=== PATIENT | male | born 1960 | race Caucasian/White ===

== ENCOUNTER 2022-04-07 15:03 | Emergency (ER) | payer BC, OTHER ==
[2022-04-07] MEDS ORDERED: NEOSYNEPHRINE 0.5% NASAL SPRAY/DROPS ONE (15:15)
[2022-04-07 15:47] LABS: Absolute Neutrophil Ct (ANC) 5.91 x10^3/uL (1.4-6.9); Basophil (Absolute #) 0.06 x10^3/uL (0-0.4); Eosinophil % 3.5 % (0.00-5.0); Hematocrit 38.3 % (42-50); Hemoglobin 11.8 g/dL (12.5-18.0); Lymphocyte (Absolute #) 1.54 x10^3/uL (1.0-4.6); Lymphocytes % 17.9 % (24.0-44.0); Mean Cell Volume 98.2 fL (78-100); Mean Corpuscular Hemoglobin 30.3 pg (26-32); Mean Corpuscular Hgb Concent. 30.8 g/dL (32-36); Mean Platelet Volume 9.5 fL (7.5-11.0); Monocyte (Absolute #) 0.76 x10^3/uL (0.0-1.3); Monocytes % 8.8 % (0.0-12.0); Neutrophil % 68.8 % (36.0-66.0); Platelet Count 202 x10^3/uL (150-450); Red Cell Distribution Width 13.7 % (11.5-14.0); White Blood Count 8.6 x10^3/uL (4.0-10.5)
[2022-04-07] MEDS ORDERED: NEOSYNEPHRINE 0.5% NASAL SPRAY/DROPS NS ONE (15:47)
--- NOTE | 2022-04-07 15:54 | ERPHSYRPT ---
- History of Present Illness Source: patient Exam Limitations: other (Poor historian) Patient Subjective Stated Complaint: Nosebleed Triage Nursing Assessment: Patient brought back to [facility] w/c and transferred self to bed. Patient A+O x3. Patient's skin pink, warm and dry. Patient complains of nose bleed out of left nare that started around 0900. Patient denies recent trau ma to nose. Patient does take Xarelto. Left nare noted not to have any active bleeding but dried blood around nare. Physician History: 62 yo wm w L epistaxis since 9:00AM today. Pt is on Xaralto. He denies h/o epistaxis and has no other complaints at this time. Timing/Duration: abrupt onset Severity: mild ENT Location: nose (L epistaxis) Prearrival Treatment: no prearrival treatment Modifying Factors: Improves With: activity Associated Symptoms: epistaxis Allergies/Adverse Reactions: venom-honey bee Allergy (Verified 04/07/22 15:16) Hx Influenza Vaccination/Date Given: No Hx Pneumococcal Vaccination/Date Given: No Immunizations Up to Date: Yes Travel Risk - International Travel Have you traveled outside of the country in past 3 weeks: No - Coronavirus Screening Are you exhibiting any of the following symptoms?: No Close contact with a COVID-19 positive Pt in past 14-21 Days: No - Vaccine Status Have you recieved a Covid-19 vaccination: 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[employer] - Vaccination Dates Date of 2cond Vaccination (if applicable): na - Review of Systems Constitutional: No Symptoms Eyes: No Symptoms Ears, Nose, & Throat: No Symptoms, Epistaxis Respiratory: No Symptoms Cardiac: No Symptoms Abdominal/Gastrointestinal: No Symptoms Genitourinary Symptoms: No Symptoms Musculoskeletal: No Symptoms Skin: No Symptoms Neurological: No Symptoms Psychological: No Symptoms Endocrine: No Symptoms Hematologic/Lymphatic: No Symptoms Immunological/Allergic: No Symptoms - Past Medical History Pertinent Past Medical History: Yes Neurological History: No Pertinent History ENT History: No Pertinent History Cardiac History: Hypertension Respiratory History: Asthma, Bronchitis, Sleep Apnea Endocrine Medical History: No Pertinent History Musculoskeletal History: No Pertinent History GI Medical History: GERD, GI Bleed, Hemorrhoids, Hernia, Pancreatitis, Ulcer History: No Pertinent History Psycho-Social History: No Pertinent History Male Reproductive Disorders: No Pertinent History - Past Surgical History Past Surgical History: Yes Neuro Surgical History: No Pertinent History Cardiac: No Pertinent History Respiratory: No Pertinent History Gastrointestinal: Cholecystectomy, Colon Resection, Hernia Repair Genitourinary: No Pertinent History Musculoskeletal: Joint Replacement, Orthopedic Surgery Male Surgical History: No Pertinent History Other Surgical History: Bilateral Knee replacement; left shoulder repair - Social History Smoking Status: Current every day smoker How long have you smoked: years Exposure to second hand smoke: No Drug Use: none Patient Lives Alone: Yes Significant Family History: no pertinent family hx - Nursing Vital Signs Nursing Vital Signs: Initial Vital Signs Pulse Rate 86 04/07/22 15:18 Respiratory Rate 18 04/07/22 15:18 Blood Pressure 95/77 04/07/22 15:18 O2 Sat by Pulse Oximetry 95 04/07/22 15:18 Pain Scale Pain Intensity 8 Borderline hypotension - Physical Exam General Appearance: no apparent distress Eye Exam: bilateral eye: normal inspection, PERRL, EOMI Ear Exam: bilateral ear: auricle normal, canal normal, TM normal Nasal Exam: dried blood (L anterior nares) Throat Exam: normal, pharynx normal Neck Exam: normal inspection, non-tender, supple, full range of motion, trachea midline Cardiovascular/Respiratory Exam: normal breath sounds, regular rate/rhythm, heart sounds normal Abdominal Exam: non-tender, soft (Morbidly obese) Neurologic Exam: alert, oriented x 3, cooperative, 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, normal mood/affect, nml cerebellar function, nml station & gait, sensation nml Skin Exam: normal color, warm, dry, No rash SpO2 Interpretation: normal SpO2: 95 O2 Delivery: Room Air - Course Nursing assessment & vital signs reviewed: Yes - CT Exams Head CT Interpretation: Tele-radiologist Report (CT head neg per telerad) Ordered Tests: Active Orders 24 hr Category Date Time Status HEAD WITHOUT CONTRAST [CT] Stat Exams 04/07/22 17:03 Taken CBC W DIFF Stat Lab 04/07/22 15:30 Completed PROTIME WITH INR Stat Lab 04/07/22 15:51 Completed PTT Stat Lab 04/07/22 15:51 Completed Medication Summary Discontinued Medications Generic Name Dose Route Start Last Admin Trade Name Freq PRN Reason Stop Dose Admin Hydrocodone Bitart/Acetaminophen 1 tablet 04/07/22 18:14 04/07/22 18:18 Hydrocodone/Acetamin 10-325 Mg Tablet PO 04/07/22 18:15 1 tablet STAT ONE Administration Phenylephrine HCl Confirm 04/07/22 15:15 Neosynephrine 0.5% Nasal Mercer/Drops Administered 04/07/22 15:16 Dose 15 ml .ROUTE .STK-MED ONE Phenylephrine HCl 15 ml 04/07/22 15:47 04/07/22 15:48 Neosynephrine 0.5% Nasal Mercer/Drops NS 04/07/22 15:48 15 ml STAT ONE Administration Lab/Rad Data: Laboratory Result Diagrams 04/07/22 15:30 Laboratory Results 04/07/22 04/07/22 Range/Units 15:51 15:30 WBC 8.6 (4.0-10.5) x10^3/uL RBC 3.90 L (4.1-5.6) x10^6/uL Hgb 11.8 L (12.5-18.0) g/dL Hct 38.3 L (42-50) % MCV 98.2 (78-100) fL MCH 30.3 (26-32) pg MCHC 30.8 L (32-36) g/dL RDW 13.7 (11.5-14.0) % Plt Count 202 (150-450) x10^3/uL MPV 9.5 (7.5-11.0) fL Gran % 68.8 H (36.0-66.0) % Immature Gran % (Auto) 0.3 (0.00-0.4) % Nucleat RBC Rel Count 0.0 (0.00-0.1) % Eos # (Auto) 0.30 (0-0.5) x10^3/uL Immature Gran # (Auto) 0.03 (0.00-0.03) x10^3u/L Absolute Lymphs (auto) 1.54 (1.0-4.6) x10^3/uL Absolute Monos (auto) 0.76 (0.0-1.3) x10^3/uL Absolute Nucleated RBC 0.00 (0.00-0.01) x10^3u/L Lymphocytes % 17.9 L (24.0-44.0) % Monocytes % 8.8 (0.0-12.0) % Eosinophils % 3.5 (0.00-5.0) % Basophils % 0.7 (0.0-0.4) % Absolute Granulocytes 5.91 (1.4-6.9) x10^3/uL Basophils # 0.06 (0-0.4) x10^3/uL PT 15.3 H (9.4-12.5) SECONDS INR 1.50 (0.8-3.0) APTT 42.8 H (25.1-36.5) SECONDS - Progress Progress: improved Progress Note: 04/07/22 15:54 Pt started to bleed from L nostril, appears anterior Neosynephrine sprayed into L nares generously anterior Epistaxis balloon placed and inflated No comps 04/07/22 18:21 Pt developed extreme NDIAYE after balloon catheter placed which decreased slightly by letting some air out. Pain seemed out of proportion to situation and since pt on Xaralto, obtained CT of head which was negative. Norco10 po x1. Counseled pt/family regarding: diagnosis, need for follow-up - Departure Departure Disposition: Home Clinical Impression: Epistaxis Condition: Stable Critical Care Time: No Referrals: RODRICK GONZALEZ MD [Primary Care Provider] - Follow up/PCP as directed Instructions: Nosebleeds (DC) Additional Instructions: Hold Morning dose of Xaralto and resume on Sunday Return to ER on Sunday to have packing removed Return to ER sooner if bleeding restarts
[2022-04-07 16:13] LABS: INR 1.5 (0.8-3.0); PROTIME 15.3 SECONDS (9.4-12.5); PTT 42.8 SECONDS (25.1-36.5)
[2022-04-07] MEDS ORDERED: HYDROCODONE-ACETAMIN 10-325 MG PO ONE (18:14)
[2022-04-07 18:24] VITALS: BP 128/88; PULSE 80
[2022-04-07 18:25] VITALS: O2SAT 95
--- NOTE | 2022-04-07 23:13 | XRAY ---
Indication: Headache, dizziness, and epistaxis. Multiple contiguous axial images obtained through the head without contrast. Comparison: None Age-appropriate global atrophy. No acute intracranial hemorrhage, abnormal extra-axial fluid collection, or mass effect. Fourth ventricle is midline without hydrocephalus. Bony calvarium intact. Visualized paranasal sinuses and mastoid air cells are clear. Impression: Negative CT head without contrast exam. Comment: Preliminary interpretation made by [facility]. No critical discrepancy.
== END 2022-04-07 18:29 | disposition home or self-care (01) ==
LOC: ED 15:03
DX: R04.0 Epistaxis (principal); R51.9 Headache, unspecified; Z79.01 Long term (current) use of anticoagulants; Z79.899 Other long term (current) drug therapy; Z20.828 Contact with and (suspected) exposure to other viral communicable diseases; Z72.0 Tobacco use
CPT/HCPCS: 36415; 70450; 85025; 85610; 85730; 99283; A9270-GY

== ENCOUNTER 2022-04-10 07:02 | Emergency (ER) | payer OTHER ==
--- NOTE | 2022-04-10 07:23 | ERPHSYRPT ---
- History of Present Illness Source: patient Exam Limitations: no limitations Patient Subjective Stated Complaint: Nose bleed- removal of Rhino Rocket Triage Nursing Assessment: Patient ambulated back to ED and transferred self to bed. Patient A+O X3. Patient's skin pink, warm and dry. Patient here to have Rhino Rocket removed. Patient had nosebleed on Sunday04/07/2022 and a Rhino Rocket was placed in left nare. Patient denies pain or discomfort. Physician History: Pt here to have Rhino-Rocket removed from L nostril after being placed on 04/07 by myself for L epistaxis. Pt was supposed to resume Xaralto yesterday but did not. He is instructed to start it this morning. He reports no further bleeding. 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[employer]: [employer] - Vaccination Dates Date of 2cond Vaccination (if applicable): na - Review of Systems Constitutional: No Symptoms Eyes: No Symptoms Ears, Nose, & Throat: No Symptoms Respiratory: No Symptoms Cardiac: No Symptoms Abdominal/Gastrointestinal: No Symptoms Genitourinary Symptoms: No Symptoms Musculoskeletal: No Symptoms Skin: No Symptoms Neurological: No Symptoms Psychological: No Symptoms Endocrine: No Symptoms Hematologic/Lymphatic: No Symptoms Immunological/Allergic: No Symptoms - Past Medical History Pertinent Past Medical History: Yes Neurological History: No Pertinent History ENT History: No Pertinent History Cardiac History: Hypertension Respiratory History: Asthma, Bronchitis, Sleep Apnea Endocrine Medical History: No Pertinent History Musculoskeletal History: No Pertinent History GI Medical History: GERD, GI Bleed, Hemorrhoids, Hernia, Pancreatitis, Ulcer History: No Pertinent History Psycho-Social History: No Pertinent History Male Reproductive Disorders: No Pertinent History - Past Surgical History Past Surgical History: Yes Neuro Surgical History: No Pertinent History Cardiac: No Pertinent History Respiratory: No Pertinent History Gastrointestinal: Cholecystectomy, Colon Resection, Hernia Repair Genitourinary: No Pertinent History Musculoskeletal: Joint Replacement, Orthopedic Surgery Male Surgical History: No Pertinent History Other Surgical History: Bilateral Knee replacement; left shoulder repair - Social History Smoking Status: Current every day smoker How long have you smoked: years Exposure to second hand smoke: No Drug Use: none Patient Lives Alone: Yes Significant Family History: no pertinent family hx - Nursing Vital Signs Nursing Vital Signs: Initial Vital Signs Temperature 97.6 F 04/10/22 07:09 Pulse Rate 91 H 04/10/22 07:09 Respiratory Rate 18 04/10/22 07:09 Blood Pressure 142/101 04/10/22 07:09 Pain Scale Pain Intensity 0 Hypertensive - Physical Exam General Appearance: no apparent distress Eye Exam: PERRL/EOMI Ears, Nose, Throat Exam: TMs normal, pharynx normal, moist mucous membranes, other (Rhino-Rocket L nares/No active bleeding) Neck Exam: normal inspection, non-tender, supple, full range of motion, No meningismus, No mass, No Brudzinski, No Kernig's, No carotid bruit Respiratory Exam: normal breath sounds, lungs clear, airway intact Cardiovascular Exam: regular rate/rhythm, normal heart sounds, normal peripheral pulses, capillary refill <2 sec, No murmur Gastrointestinal/Abdomen Exam: soft, normal bowel sounds, No tenderness Back Exam: normal inspection, normal range of motion, No CVA tenderness, No vertebral tenderness Extremity Exam: normal inspection, normal range of motion Neurologic Exam: alert, oriented x 3, cooperative, 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, normal mood/affect, nml cerebellar function, nml station & gait, sensation nml Skin Exam: normal color, warm, dry, No rash Lymphatic Exam: No adenopathy - Course Nursing assessment & vital signs reviewed: Yes - Progress Progress: improved Progress Note: 04/10/22 07:22 Rhino-Rocket removed from L nares/No bleeding 04/10/22 07:26 BP improved before discharge Counseled pt/family regarding: diagnosis, need for follow-up - Departure Departure Disposition: Home Clinical Impression: Epistaxis Condition: Stable Critical Care Time: No Referrals: RODRICK GONZALEZ MD [Primary Care Provider] - Follow up/PCP as directed Instructions: Nosebleeds (DC) Additional Instructions: Start your Xaralto this morning Irrigate nostrils w saline nasal spray Follow up with your family MD as needed
[2022-04-10 07:26] VITALS: BP 169/99; PULSE 78; O2SAT 96
== END 2022-04-10 07:30 | disposition home or self-care (01) ==
LOC: ED 07:02
DX: R04.0 Epistaxis (principal)
CPT/HCPCS: 99281